=== PATIENT | male | born 1965 | race Two or more races ===

== ENCOUNTER 2017-12-16 15:40 | Outpatient (CLI) | payer OTHER | END 2017-12-16 19:36 | disposition home or self-care (01) | LOC: MLB 15:40 | DX: M54.5 Low back pain (principal); M12.9 Arthropathy, unspecified; M50.20 Other cervical disc displacement, unspecified cervical region | CPT/HCPCS: 36415 ==

== ENCOUNTER 2018-06-23 13:44 | Outpatient (CLI) | payer OTHER | END 2018-06-23 21:00 | disposition home or self-care (01) | LOC: MLB 13:44 | DX: M51.26 Other intervertebral disc displacement, lumbar region (principal); M12.9 Arthropathy, unspecified; M54.2 Cervicalgia | CPT/HCPCS: 36415; 80299 ==